=== PATIENT | male | born 1960 | race Caucasian/White ===

== ENCOUNTER 2017-01-24 12:02 | Day surgery (SDC) | payer OTHER ==
[~2017-01-24] VITALS: Ht 182.9 cm; Wt 168.3 kg
[~2017-01-24 12:02] MED LIST: DAILY VALUE1 EACH PO; DAY-TIME COLD-1 EACH PO; DICYCLOMINE HCL20 MG PO; ENDOCET 5-3251 EACH PO; FERROUS SULFAT325 MG PO; GLYCOTROL CAPS1 EACH PO; NAPROSYN500 MG PO; PROTONIX40 MG PO; TYLENOL EXTRA500 MG PO; XARELTO1 EACH PO
[2017-01-24 12:27] VITALS: BP 127/70
[2017-01-24 13:28] LABS: ANION GAP 8 MEQ/L (2-14); CHLORIDE 106 MEQ/L (99-109); GFR ESTIMATE (CALCULATED) > 59 mL/min/; GLUCOSE 94 mg/dL (70-99); POTASSIUM 4.1 MEQ/L (3.7-5.4); SAMPLE HEMOLYSIS CHECK 0; SAMPLE ICTERIC CHECK 0; SAMPLE LIPEMIA CHECK 0; SODIUM 140 MEQ/L (136-147); UREA NITROGEN (BUN) 13 mg/dL (9-23)
[2017-01-24 16:11] VITALS: BP 149/84
[2017-01-24 16:44] VITALS: BP 141/71
== END 2017-01-24 16:50 | disposition home or self-care (01) ==
LOC: SDC 12:02
PROVIDERS: Surgery Plastic and Reconstructive Surgery
DX: S01.80XA Unspecified open wound of other part of head, initial encounter (principal); L08.9 Local infection of the skin and subcutaneous tissue, unspecified; L98.8 Other specified disorders of the skin and subcutaneous tissue; E66.9 Obesity, unspecified; Z68.43 Body mass index [BMI] 50.0-59.9, adult; D64.89 Other specified anemias; D50.9 Iron deficiency anemia, unspecified
CPT/HCPCS: 80048; 88305; J0131; J0330; J0690; J1100; J2250; J2405; J3010; Q0175; S0020